=== PATIENT | male | born 1965 | race Caucasian/White ===

== ENCOUNTER 2024-04-04 22:44 | Emergency (ER) | payer OTHER ==
[2024-04-05] MEDS: Ibuprofen 800 MG Tab PO ONE (00:13)
[2024-04-05] MEDS: Take Home: Acetaminophen/oxyCODONE 325-5 MG, 5 Tab Pack PO ONE (00:23)
== END 2024-04-05 00:35 | disposition home or self-care (01) ==
LOC: DL.ED 22:44
DX: S82.431A Displaced oblique fracture of shaft of right fibula, initial encounter for closed fracture (principal); S82.441A Displaced spiral fracture of shaft of right fibula, initial encounter for closed fracture; Z88.0 Allergy status to penicillin; Z88.1 Allergy status to other antibiotic agents; X50.1XXA Overexertion from prolonged static or awkward postures, initial encounter; Y93.72 Activity, wrestling
CPT/HCPCS: 73610; 99283; A9270